=== PATIENT | male | born 1965 | race Caucasian/White ===

== ENCOUNTER 2023-03-10 12:47 | Outpatient (CLI) | payer OTHER, SELFPAY ==
--- NOTE | 2023-03-10 13:00 | CT_ITS ---
WS: [id number] CT ABDOMEN AND PELVIS WITH CONTRAST HISTORY: inguinal scrotal hernia TECHNIQUE: Imaging performed of the abdomen and pelvis with IV contrast. Single phase imaging of the abdomen. Coronal and sagittal reformats are submitted. All CT scans at [facility] use at [address] one of these dose optimization techniques: automated exposure control; mA and/or kV adjustment per patient size (includes targeted exams where dose is matched to clinical indication); or iterative re construction. IV CONTRAST: Omnipaque 350; 100 mL IV. Oral contrast: Yes. DLP: 940.63 mGy.cm COMPARISON: None available. Lower thorax: Lung bases are clear. Heart is normal size. No hiatal hernia. Liver/biliary system: Normal size with no intrahepatic dilatation. Gallbladder: Status post cholecystectomy. Pancreas: Normal size pancreas and pancreatic duct. No adjacent inflammation. Spleen: Normal size spleen. No mass or infarct. Adrenal glands: Normal. Right kidney: Normal size kidney. Multiple cortical cysts are identified. The largest in the upper po le is 2.4 cm. There are additional scattered 2 to 3 mm hypodensities which are too small to character ize. No obstruction. Left kidney: Cysts and too small to characterize hypodensities. No obstruction. Normal size. Aorta: Mild atherosclerosis with no aneurysm. Lymphadenopathy: None. Free fluid: None. GI tract: Normal stomach. No small bowel obstruction. Several loops of small bowel extend into a larg e scrotal hernia through the LEFT inguinal canal. There are numerous loops of small bowel within the large hernia sac. Small bowel loops are displaced in the testes to the RIGHT and posterior. No colon obstruction. Moderate diffuse constipation. Prior appendectomy. Abdominal wall: Unremarkable abdominal wall. No hernia. Pelvis: No free fluid or adenopathy within the pelvis. Patent bilateral inguinal canals. As described above there is a large LEFT scrotal hernia containing nonobstructed small bowel. Hernia sac extends inferiorly by 18 cm from the orifice. Bones: 6 mm anterolisthesis of L4. Facet joint arthritis throughout the lumbar spine. IMPRESSION: 1. Large LEFT scrotal hernia containing nonobstructed small bowel. Small bowel within the scrotal he rnia extends inferiorly by 18 cm from the orifice. 2. Prior appendectomy and cholecystectomy. 3. Bilateral renal cysts and too small to characterize hypodensities. Cysts and hypodensities are ne w and/or increased since 2004.
[2023-03-10] MEDS: iohexol 350 mg/mL 500 mL Btl (per mL) IV (13:03)
[2023-03-10] MEDS: iohexol 350 mg/mL 500 mL Btl (per mL) PO (13:04)
== END 2023-03-10 12:48 | disposition home or self-care (01) ==
LOC: RAD 12:49
PROVIDERS: Visit Provider Surgery
DX: K40.90 Unilateral inguinal hernia, without obstruction or gangrene, not specified as recurrent (principal); N28.1 Cyst of kidney, acquired; Z90.49 Acquired absence of other specified parts of digestive tract; Z90.89 Acquired absence of other organs
CPT/HCPCS: 74177; Q9967

== ENCOUNTER 2024-06-06 13:42 | Emergency (ER) | payer BC, SELFPAY ==
--- NOTE | 2024-06-06 13:44 | ECG_ITS ---
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 [email or web address]
--- NOTE | 2024-06-06 13:45 | XRR_ITS ---
PROCEDURE INFORMATION: Exam: XR Chest Exam date and time: 06/06/2024 1:51 PM Age: 58 years old Clinical indication: Pain; Angina pectoris; Additional info: Chest pain TECHNIQUE: Imaging protocol: Radiologic exam of the chest. Views: 1 view. COMPARISON: CT abdomen pelvis w con* [id number] 03/10/2023 2:00 PM FINDINGS: Airway: Patent Lungs: Left lung calcified granuloma is benign. No consolidations. Pleural spaces: Unremarkable. No pleural effusion. No pneumothorax. Heart/Mediastinum: Unremarkable. No cardiomegaly. Vasculature: Tortuous aorta. Bones/joints: No acute skeletal abnormality or aggressive osseous lesion. XR/XR chest 1V portable [id number] IMPRESSION: No acute findings.
[2024-06-06 13:46] VITALS: BP 142/105; PULSE 86; RESP 18; TEMP 36.6; O2SAT 97; BMI 27.8
--- NOTE | 2024-06-06 14:00 | ED_ITS ---
HPI - Chest Pain 2 General: Chief Complaint: Chest Pain Stated Complaint: Chest Pain Time Seen by Provider: 06/06/24 13:44 History of Present Illness: Patient presents to the ER by EMS with complaints of chest pain. Patient was working at [employer] was lifting boxes. When he became pale diaphoretic and began having chest pressure. Patient [place] any previous cardiac history. Patient was taking lisinopril but stopped on his own due to cough. EMS gave patient 2 nitro and 324 mg aspirin en route. Patient is no longer have any chest pain and feels better already. Related Data Home Medications Medication Instructions Recorded Confirmed [id number] 250 1 tab PO Q6H PRN Headache 12/26/22 06/06/24 mg-250 mg-65 mg tablet (Excedrin Migraine) aspirin 325 mg tablet (Dawson 650 mg PO DAILY 06/06/24 06/06/24 Aspirin) esomeprazole magnesium 20 mg 20 mg PO DAILY 06/06/24 06/06/24 capsule,delayed release (Nexium) multivitamin 1 tab PO DAILY 06/06/24 06/06/24 Allergies Allergy/AdvReac Type Severity Reaction Status Date / Time No Known Allergies Allergy Verified 03/11/23 11:24 Review of Systems 2 General: Reports: 10 or more systems reviewed and unremarkable except in HPI and below PFSH ED 2 PFSH: Surgical History History of appendectomy History of inguinal hernia repair History of laparoscopic cholecystectomy Family History Mother Cancer Non hodksins lymphoma Social History Smoking and tobacco/nicotine status: current every day tobacco/nicotine user cigarettes Alcohol intake: former Physical Exam 2 Const: COMMON NORMALS: no acute distress, average body habitus, patient oriented x3, no limitations, healthy appearing, alert and well nourished HENMT: COMMON NORMALS: normocephalic, atraumatic, hearing grossly normal bilaterally, external ears normal, Normal external nose present and moist oral mucous membranes HEAD & SCALP: normocephalic and atraumatic NOSE: Normal external nose present EXTERNAL EAR: Yes external ears normal Neck/C-Spine: COMMON NORMALS: no JVD Chest: COMMONS NORMALS: normal inspection of the chest and normal palpation of entire chest wall Resp: COMMON NORMALS: normal respiratory effort, No retractions, No use of accessory muscles and clear to auscultation bilaterally AUSCULTATION: clear to auscultation bilaterally Cardio: COMMON NORMALS: no JVD, regular rate, regular rhythm, S1 normal heart sound present, S2 normal heart sound present, No gallops present (Cardio), No clicks present (Cardio), No murmurs present (Cardio) and No rub (Cardio) R ATE: regular rate RHYTHM: regular rhythm HEART SOUNDS: S1 normal heart sound present and S2 normal heart sound present GI: COMMON NORMALS: Normal to inspection, nondistended, normoactive bowel sounds present, Soft to palpation, non-tender, No hepatosplenomegaly present and no masses PALPATION: Yes Soft to palpation and Yes No hepatosplenomegaly present Neuro: COMMON NORMALS: patient oriented x3 SENSORIUM/ORIENTATION: Yes alert Course 2 Vital Signs: Vital signs: Vital Signs Temperature 97.9 F 06/06/24 13:46 Pulse Rate 81 06/06/24 18:15 Respiratory Rate 18 06/06/24 18:15 Blood Pressure 130/95 06/06/24 18:15 Pulse Oximetry 98 06/06/24 18:15 Oxygen Delivery Me thod Room Air 06/06/24 18:15 MDM - Chest Pain Medical Decision Making Patient presented with chest pain was worked up in standard chest pain fashion with serial EKGs, serial enzymes, chest x-ray, all of which was essentially benign. It is thought patient has not had noncardiac chest pain. Patient be discharged home. Medical Records I reviewed the patient's medical records. Lab Data I reviewed the patient's lab results. 06/06/24 14:10 06/06/24 14:10 Radiology Impressions Chest X-Ray 06/06/24 13:45 IMPRESSION: No acute findings. Laboratory Results WBC 7.47 10^3/uL (3.29-11.43) 06/06/24 14:10 RBC 5.11 10^6/uL (3.85-5.65) 06/06/24 14:10 Hgb 15.30 g/dL (11.27-16.99) 06/06/24 14:10 Hct 46.9 % (37-53) 06/06/24 14:10 MCV 91.8 fl (82-101) 06/06/24 14:10 MCH 29.9 pg (27-33) 06/06/24 14:10 MCHC 32.6 g/dL (30-55) 06/06/24 14:10 RDW 13.2 % (12.1-15.1) 06/06/24 14:10 Plt Count 267 10^3/cmm (157-399) 06/06/24 14:10 MPV 8.8 fL (7.4-10.4) 06/06/24 14:10 Neut % (Auto) 57.2 % 06/06/24 14:10 Lymph % (Auto) 28.9 % 06/06/24 14:10 Roberts % (Auto) 8.6 % 06/06/24 14:10 Eos % (Auto) 3.6 % 06/06/24 14:10 Baso % (Auto) 0.8 % 06/06/24 14:10 Neut # (Auto) 4.27 10^3/uL (1.8-7.7) 06/06/24 14:10 Lymph # (Auto) 2.2 10^3/uL (0.8-4.8) 06/06/24 14:10 Roberts # (Auto) 0.6 10^3/uL (0.2-0.9) 06/06/24 14:10 Eos # (Auto) 0.3 10^3/uL (0.0-0.8) 06/06/24 14:10 Baso # (Auto) 0.1 10^3/uL (0.0-0.1) 06/06/24 14:10 Nucleated RBC % (auto) 0 % 06/06/24 14:10 Nucleated RBCs # 0.0 /100WBC 06/06/24 14:10 Sodium 137 mmol/L (136-145) 06/06/24 14:10 Potassium 4.5 mmol/L (3.5-5.1) 06/06/24 14:10 Chloride 99 mmol/L (98-107) 06/06/24 14:10 Carbon Dioxide 29 mmol/L (22-29) 06/06/24 14:10 Anion Gap 13.5 (5-19) 06/06/24 14:10 BUN 22 mg/dL (6-20) H 06/06/24 14:10 Creatinine 0.7 mg/dL (0.7-1.2) 06/06/24 14:10 GFR Calculation 115.8 mL/min (90-130) 06/06/24 14:10 Glucose 86 mg/dL (65-115) 06/06/24 14:10 Calculated Osmolality 287 mOsm/kg (285-295) 06/06/24 14:10 Calcium 9.8 mg/dL (8.5-10.5) 06/06/24 14:10 Total Bilirubin 0.3 mg/dL (0.15-1.2) 06/06/24 14:10 AST 24 U/L (0-40) 06/06/24 14:10 ALT 24 U/L (0-41) 06/06/24 14:10 Alkaline Phosphatase 89 U/L (40-130) 06/06/24 14:10 Troponin T Baseline 16 ng/L (0-15) H 06/06/24 14:10 Troponin T 120 Minute 21.01 ng/L (0-15) H 06/06/24 17:10 Delta Troponin T 5.01 ABS# (0-10) 06/06/24 17:10 Total Protein 6.5 g/dL (6.6-8.7) L 06/06/24 14:10 Albumin 4.6 g/dL (3.5-5.2) 06/06/24 14:10 Globulin 1.9 g/dL (1.3-4.6) 06/06/24 14:10 All radiology interpretation(s) finalized by discharge Discharge Plan Discharge Patient Disposition: Home Clinical Impression: Non-cardiac chest pain Condition: Stable Prescriptions: No Action Excedrin Migraine 250-250-65 mg tablet 1 tab PO Q6H PRN (Reason: Headache) multivitamin Tablet 1 tab PO DAILY aspirin [Dawson Aspirin] 325 mg Tablet 650 mg PO DAILY esomeprazole magnesium [Nexium] 20 mg Capsule,Delayed Release(Dr/Ec) 20 mg PO DAILY Discharge Orders: Discharge ED (Routine); Ordered 06/06/24 Ordered By: Ryan Solorzano Patient Instructions: Noncardiac Chest Pain (ED) Activity Restrictions/Additional Instructions: Your evaluation ER today consisted of physical exam, chest x-ray, EKG, and lab work, all of which did not show any acute cardiac cause of your chest pain. Your chest pain is felt to be noncardiac in nature. Please follow-up with your family practice physician within next 7 days for further evaluation and treatment as needed. Coding Level of Care Code ED Occupational Health Physician for Jamal Cannon
[2024-06-06 14:20] LABS: Basophils # 0.1 10^3/uL (0.0-0.1); Basophils % 0.8 %; Eosinophils # 0.3 10^3/uL (0.0-0.8); Eosinophils % 3.6 %; Hematocrit 46.9 % (37-53); Lymphocytes # 2.2 10^3/uL (0.8-4.8); Lymphocytes % 28.9 %; Mean Corpuscular HGB Conc 32.6 g/dL (30-55); Mean Corpuscular Hemoglobin 29.9 pg (27-33); Mean Corpuscular Volume 91.8 fl (82-101); Mean Platelet Volume 8.8 fL (7.4-10.4); Monocytes # 0.6 10^3/uL (0.2-0.9); Monocytes % 8.6 %; Neutrophils # 4.27 10^3/uL (1.8-7.7); Neutrophils % 57.2 %; Nucleated Red Blood Cells % 0 %; Platelet Count 267 10^3/cmm (157-399); Red Blood Count 5.11 10^6/uL (3.85-5.65); Red Cell Distribution Width 13.2 % (12.1-15.1); White Blood Count 7.47 10^3/uL (3.29-11.43)
[2024-06-06 14:30] VITALS: BP 146/85; PULSE 85; RESP 16; O2SAT 98
[2024-06-06 14:39] LABS: Alanine Aminotransferase 24 U/L (0-41); Albumin Level 4.6 g/dL (3.5-5.2); Alkaline Phosphatase 89 U/L (40-130); Anion Gap 13.5 (5-19); Aspartate Amino Transferase 24 U/L (0-40); Blood Urea Nitrogen 22 mg/dL (6-20); Calcium 9.8 mg/dL (8.5-10.5); Carbon Dioxide 29 mmol/L (22-29); Chloride 99 mmol/L (98-107); Creatinine Clr Calc Pharmacy 132.5458; Globulin 1.9 g/dL (1.3-4.6); Glomerular Filtration Rate 115.8 mL/min (90-130); Glucose 86 mg/dL (65-115); Osmolality Calculated 287 mOsm/kg (285-295); Potassium 4.5 mmol/L (3.5-5.1); Sodium 137 mmol/L (136-145); Total Bilirubin 0.3 mg/dL (0.15-1.2); Total Protein 6.5 g/dL (6.6-8.7)
[2024-06-06 14:45] LABS: Troponin(5th) Baseline 16 ng/L (0-15)
--- NOTE | 2024-06-06 15:50 | ECG_ITS ---
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 [id number]
[2024-06-06 15:54] VITALS: BP 131/86; PULSE 80; RESP 16; O2SAT 96
[2024-06-06 16:27] VITALS: BP 122/81; PULSE 94
[2024-06-06 17:45] LABS: Troponin 5 2HR 21.01 ng/L (0-15); Troponin 5 2HR Delta 5.01 ABS# (0-10)
[2024-06-06 18:15] VITALS: BP 130/95; PULSE 81; RESP 18; O2SAT 98
[2024-06-06 19:10] VITALS: BP 103/72; PULSE 82; RESP 16; O2SAT 95
== END 2024-06-06 19:12 | disposition home or self-care (01) ==
PROVIDERS: Emergency Provider Emergency Medicine
DX: R07.89 Other chest pain (principal); Z79.82 Long term (current) use of aspirin; F17.210 Nicotine dependence, cigarettes, uncomplicated
CPT/HCPCS: 36415; 71045; 80053; 84484; 85025; 93005; 99285